=== PATIENT | male | born 1935 | race Caucasian/White ===

== ENCOUNTER → 2017-02-25 12:00 | Outpatient (CLI) | payer MEDICARE, OTHER ==
[2016-06-29 11:05] VITALS: BMI 25.1
[~2017-02-25 12:00] MED LIST: BAYER CHEWABLE81 MG PO; COREG 3.1253.125 MG PO; DILANTIN100 MG PO; FUROSEMIDE20 MG PO; ISOSORBIDE MONO60 M1 PO; LIPITOR40 MG PO; MIRALAX17 GM PO; PROTONIX40 MG PO; RANEXA1000 MG PO; SINGULAIR10 MG PO
== END | disposition home or self-care (01) ==
LOC: D.US 02-24 14:30
DX: I65.23 Occlusion and stenosis of bilateral carotid arteries (principal)

== ENCOUNTER → 2017-06-06 08:24 | Outpatient (CLI) | payer MEDICARE, OTHER ==
[2016-06-29 11:05] VITALS: BMI 25.1
== END | disposition home or self-care (01) ==
LOC: D.RT 08:24
DX: J44.9 Chronic obstructive pulmonary disease, unspecified (principal)

== ENCOUNTER 2018-02-26 19:25 | Inpatient (IN) | payer MEDICARE, OTHER ==
[~2018-02-26] VITALS: Ht 182.9 cm; Wt 81.2 kg
[2018-02-26 20:02] LABS: BASOPHILS 0.2 % (0-2); HEMATOCRIT 39.1 % (42.0-54.0); HEMOGLOBIN 13.7 g/dL (13.5-17.5); IMMATURE GRANULOCYTES 0.9 % (0-5); LYMPHOCYTES 23.1 % (15-50); MCH 34.3 pg (26.0-34.0); MCV 97.8 fL (80.0-100.0); MEAN PLATELET VOLUME 9.2 fL (7.4-10.4); NEUTROPHILS 58.8 % (40-80); RDW 13.8 % (11.5-14.5); WBC 9.2 10x3/uL (4.8-10.8)
[2018-02-26 20:12] LABS: PLATELET COUNT 248 10x3/uL (130-400)
[2018-02-26 20:22] LABS: APTT 29.6 SECONDS (22.8-39.4); INR 1.04 (0.85-1.17); PROTIME 13.2 SECONDS (11.6-15.0)
[2018-02-26 20:23] LABS: ALBUMIN 3.6 g/dL (3.4-5.0); ANION GAP 15.5 mmol/L (8-16); BILIRUBIN - TOTAL 0.28 mg/dL (0.2-1.3); CALCIUM 9.3 mg/dL (8.5-10.1); CARBON DIOXIDE 23.8 mmol/L (21.0-32.0); CREATININE - SERUM 1.8 mg/dL (0.6-1.3); POTASSIUM - SERUM 4.3 mmol/L (3.5-5.1); PROTEIN - SERUM 7.4 g/dL (6.4-8.2)
[2018-02-26 22:27] VITALS: BP 137/74; BMI 24.3
[2018-02-26 23:00] VITALS: BP 120/61
[2018-02-26] MEDS ORDERED: TOPROL XL100 MG PO (23:33)
[2018-02-27] VITALS (17 sets, daily range): BP systolic 101–164; BP diastolic 54–73; Ht 182.9 cm; Wt 81.2 kg
[2018-02-27 02:19] LABS: BASOPHILS 0.2 % (0-2); EOSINOPHILS 2.4 % (0-7); HEMATOCRIT 33.3 % (42.0-54.0); HEMOGLOBIN 11.5 g/dL (13.5-17.5); IMMATURE GRANULOCYTES 0.8 % (0-5); LYMPHOCYTES 16.8 % (15-50); MCH 31.6 pg (26.0-34.0); MCHC 34.5 g/dL (31.0-37.0); NEUTROPHILS 70.8 % (40-80); PLATELET COUNT 204 10x3/uL (130-400); RBC 3.64 10x6/uL (4.20-6.10); RDW 16.1 % (11.5-14.5); WBC 9.5 10x3/uL (4.8-10.8)
[2018-02-27 02:24] LABS: MCV 91.5 fL (80.0-100.0)
[2018-02-27 02:30] LABS: APTT 27.7 SECONDS (22.8-39.4); INR 1.04 (0.85-1.17); PROTIME 13.2 SECONDS (11.6-15.0)
[2018-02-27 02:36] LABS: ALBUMIN 3.2 g/dL (3.4-5.0); ANION GAP 14.1 mmol/L (8-16); BILIRUBIN - TOTAL 0.62 mg/dL (0.2-1.3); CALCIUM 8.7 mg/dL (8.5-10.1); CARBON DIOXIDE 23.9 mmol/L (21.0-32.0); CREATININE - SERUM 1.5 mg/dL (0.6-1.3); PROTEIN - SERUM 6.5 g/dL (6.4-8.2)
[2018-02-27 06:01] LABS: CKMB 0.8 U/L (0.0-3.6); CREATINE KINASE 79 UL (21-232); TROPONIN-I 0.019 ng/mL (0.000-0.060)
[2018-02-27 06:33] LABS: HEMATOCRIT 32.2 % (42.0-54.0); HEMOGLOBIN 11.1 g/dL (13.5-17.5)
[2018-02-27 11:28] LABS: HEMATOCRIT 33.6 % (42.0-54.0); HEMOGLOBIN 11.7 g/dL (13.5-17.5)
[2018-02-27 12:00] LABS: CKMB 0.6 U/L (0.0-3.6); CREATINE KINASE 63 UL (21-232)
[2018-02-27 12:01] LABS: TROPONIN-I 0.016 ng/mL (0.000-0.060)
[2018-02-27 14:06] LABS: HEMATOCRIT 32.7 % (42.0-54.0); HEMOGLOBIN 11.3 g/dL (13.5-17.5)
[2018-02-28 04:01] VITALS: BP 136/60
[2018-02-28 07:10] LABS: BASOPHILS 0.2 % (0-2); EOSINOPHILS 4.5 % (0-7); HEMATOCRIT 31.3 % (42.0-54.0); HEMOGLOBIN 10.8 g/dL (13.5-17.5); IMMATURE GRANULOCYTES 0.6 % (0-5); LYMPHOCYTES 15.7 % (15-50); MCH 31.6 pg (26.0-34.0); MCHC 34.5 g/dL (31.0-37.0); MCV 91.5 fL (80.0-100.0); MEAN PLATELET VOLUME 9.3 fL (7.4-10.4); MONOCYTES 12.3 % (2-11); NEUTROPHILS 66.7 % (40-80); PLATELET COUNT 188 10x3/uL (130-400); RBC 3.42 10x6/uL (4.20-6.10)
[2018-02-28 07:15] LABS: WBC 6.6 10x3/uL (4.8-10.8)
[2018-02-28 07:25] LABS: ANION GAP 15.5 mmol/L (8-16); CALCIUM 8.6 mg/dL (8.5-10.1); CARBON DIOXIDE 21.6 mmol/L (21.0-32.0); CREATININE - SERUM 1.3 mg/dL (0.6-1.3); POTASSIUM - SERUM 4.1 mmol/L (3.5-5.1)
[2018-02-28 08:31] VITALS: BP 150/71
[2018-02-28 12:32] VITALS: BP 143/74
[2018-02-28 12:49] LABS: CKMB 0.8 U/L (0.0-3.6); CREATINE KINASE 44 UL (21-232)
[2018-02-28 13:00] LABS: TROPONIN-I < 0.017 ng/mL (0.000-0.060)
[2018-02-28 16:13] VITALS: BP 130/55
[2018-02-28 17:23] LABS: CKMB 0.9 U/L (0.0-3.6); CREATINE KINASE 46 UL (21-232)
[2018-02-28 17:24] LABS: TROPONIN-I 0.084 ng/mL (0.000-0.060)
[2018-02-28 22:35] VITALS: BP 129/52
[2018-02-28 23:38] LABS: CKMB 1.5 U/L (0.0-3.6); CREATINE KINASE 55 UL (21-232)
[2018-02-28 23:41] LABS: TROPONIN-I 0.114 ng/mL (0.000-0.060)
[2018-03-01 05:28] LABS: BASOPHILS 0.3 % (0-2); EOSINOPHILS 5.2 % (0-7); HEMATOCRIT 29.5 % (42.0-54.0); IMMATURE GRANULOCYTES 0.6 % (0-5); MCH 31.6 pg (26.0-34.0); MCHC 33.9 g/dL (31.0-37.0); MCV 93.4 fL (80.0-100.0); MEAN PLATELET VOLUME 9.2 fL (7.4-10.4); MONOCYTES 10.6 % (2-11); NEUTROPHILS 66.3 % (40-80); PLATELET COUNT 206 10x3/uL (130-400); RBC 3.16 10x6/uL (4.20-6.10); RDW 16.5 % (11.5-14.5); WBC 6.4 10x3/uL (4.8-10.8)
[2018-03-01 05:58] LABS: ANION GAP 15.3 mmol/L (8-16); CALCIUM 8.6 mg/dL (8.5-10.1); CARBON DIOXIDE 21.8 mmol/L (21.0-32.0); CREATININE - SERUM 1.4 mg/dL (0.6-1.3); POTASSIUM - SERUM 4.1 mmol/L (3.5-5.1)
[2018-03-01 07:10] VITALS: BP 152/62
[2018-03-01 08:02] VITALS: BP 126/63
[2018-03-01] MEDS ORDERED: DILANTIN100 MG PO (10:10)
[2018-03-01 12:14] VITALS: BP 127/55
== END 2018-03-01 15:18 | disposition home or self-care (01) | DRG 377 ==
LOC: D.ER 19:25 → D.ICU 21:15 → D.EDHOLD 21:15 → D.MS 21:15 → D.ICU 21:51 → D.MS 02-27 18:10
PROVIDERS: Emergency Medicine; Family Medicine; Internal Medicine Gastroenterology; Internal Medicine Nephrology
DX: K92.2 Gastrointestinal hemorrhage, unspecified (principal); R57.1 Hypovolemic shock; D62 Acute posthemorrhagic anemia; K55.9 Vascular disorder of intestine, unspecified; N17.9 Acute kidney failure, unspecified; I24.8 Other forms of acute ischemic heart disease; I95.9 Hypotension, unspecified; R00.0 Tachycardia, unspecified; K52.9 Noninfective gastroenteritis and colitis, unspecified; E78.5 Hyperlipidemia, unspecified; Z95.1 Presence of aortocoronary bypass graft; Z95.5 Presence of coronary angioplasty implant and graft; G40.909 Epilepsy, unspecified, not intractable, without status epilepticus; K80.20 Calculus of gallbladder without cholecystitis without obstruction; I44.7 Left bundle-branch block, unspecified

== ENCOUNTER 2018-03-17 02:24 | Inpatient (IN) | payer MEDICARE, OTHER ==
[~2018-03-17] VITALS: Ht 182.9 cm; Wt 79.5 kg
--- NOTE | ~2018-03-17 | EC ---
PATIENT:ABHAY FRANCES DATE OF SERVICE: 03/17/18 SEX: M MEDICAL RECORD: [id number] DATE OF : 33 LOCATION:D.M2 D.211 AGE OF PATIENT: 83 ADMISSION DATE: 03/17/18 REFERRING PHYSICIAN: INTERPRETING PHYSICIAN: NICOLAS GEE MD ECHOCARDIOGRAM REPORT ECHO CHARGES 4 ECHO COMPLETE Date: 03/18 CLINICAL DIAGNOSIS: STEMI ECHOCARDIOGRAPHIC MEASUREMENTS (adult normal given) AC root (d.<3.7cm) 3.4 cm LV Septum d (<1.2 cm> 1.3 cm Valve Excursion 2.2 cm LV Septum (systole) 1.7 cm Left Atria (s.<4.0cm> 3.3 cm LVPW d(<1.2cm) 1.2 cm RV (d.<2.3cm) 2.3 cm LVPW (sytole) 1.6 cm LV diastole(<5.6CM) 4.1 cm MV E-F(>70mm/sec) cm LV systole 3.0 cm LVOT Diameter 2.0 cm MV exc.(>10mm) cm Est.ejection fraction (50-75%) % DOPPLER: LVIT cm/sec A 114 cm/sec E 31.0 cm/sec LA cm/sec RVSP mmHg LVOT 60.0 cm/sec AOP1/2T m/s Asc. Ao 100 cm/sec RVOT 92.0 cm/sec RA cm/sec PA 116 cm/sec AV Gradient Peak 4.0 mmHg AV Mean 1.8 mmHg AV Area 1.9 cm MV Gradient Peak 6.4 mmHg MV Mean 2.1 mmHg MV Area cm COMMENTS: Information Technology Teacher: 1 [facility] Three Knife Trimmer: 4 Dr. Gee TAPE# PACS Pericardial Effusion N DATE OF SERVICE: PROCEDURE: Transthoracic echocardiogram. FINDINGS: 1. Left ventricle shows left ventricular hypertrophy. There is asynchronous wall motion in the left ventricle, but overall function appears to be mild to moderately reduced at 35% to 40%. 2. The mitral valve appears to be normal. 3. The aortic valve is normal. ECHOCARDIOGRAM REPORT [id number] ABHAY FRANCES 4. Tricuspid valve is normal. RVSP is normal. 5. The right ventricle is normal. 6. The right atrium shows to be mildly dilated. 7. Pulmonic valve is normal. There is no pericardial effusion. CONCLUSIONS: The patient does have wall motion abnormalities consistent with prior infarction and qqnj-[id number]-[id number] reduction in systolic function. TRANSINT:[id number] Voice Confirmation ID: [id number] DOCUMENT ID: [id number] NICOLAS GEE MD at 1029 CC: [id number] DICTATION DATE: 03/19/18 0735 INTERNET SOURCER: 03/19/18 0856 DIS IN 03/18/18 [place] [id number] [place] [id number]
--- NOTE | ~2018-03-17 | HEMODYNAMI ---
PATIENT:ABHAY FRANCES MEDICAL RECORD: [id number] : 33 [id number] ADMISSION DATE: 03/17/18 Generatedon:03/17/201810:16 Patient name: ABHAY FRANCES Patient #: [id number] SSN: DO B: 1935 Date of study: 03/17/2018 Page: Of Hemodynamic Procedure Report Patient Data Patient Demographics Procedure consent was obtained First Name: BAHAY Gender: Male Last Name: YVROSE : 1935 Middle Initial: J Age: 83 year(s) Patient #: [id number] Race: Unknown Additional ID: [id number] Contact details Address: [address] [place] [address] State: [place] City: [facility] Zip code: [address] Past Medical History Allergies: No known allergies Admission Admission Data Admission Date: 03/17/2018 Admission Time: 4:31 Room #: D.2118 Lab Results Lab Result Date: 03/17/2018 Lab Result Time: 0:00 Biochemistry Name Units Result Min Max BUN mg/dl 21 --(----)-* 7 18 Creatinine mg/dl 1.5 --(----)-* 0.6 1.3 CBC Name Units Result Min Max Hemoglobin g/dl 13.1 -*(----)-- 13.5 17.5 Procedure Procedure Types Cath Procedure Diagnostic Procedure C [facility] w/Coronaries w/Grafts Sedation Charges Moderate Sedation up to 45 minutes Procedure Description Procedure Date Procedure Date: 03/17/2018 Procedure Start Time: 9:08 Procedure End Time: 10:08 Procedure Staff Name Function Arturo Banks MD Performing Physician Kirstie Patel RT Monitor Eduard Rojas RN Nurse Soheila Montenegro RT Scrub Abisai Smith MD Assisting physician Procedure Data Cath Procedure Fluoroscopy Diagnostic fluoroscopy Total fluoroscopy Time: time: 21.5 min 21.5 min Diagnostic fluoroscopy Total fluoroscopy dose: dose: 2206 mGy 2206 mGy Contrast Material Contrast Material Type Amount (ml) Isovue 370 131 Entry Location Entry Primary Successful Side Size Upsize Upsize Entry Closure Succes sful Closure Location (Fr) 1 (Fr) 2 (Fr) Remarks Device Remarks Femoral Left 5 Fr 6 Fr Exoseal artery Short Estimated blood loss: 10 ml Diagnostic catheters Device Type Used For End Catheter Placement MULTIPACK JL 4.0 5Fr Procedure catheter MULTIPACK 3DRC 5Fr Procedure catheter MULTIPACK Pigtail 5 Fr Procedure catheter Procedure Complications No complications Procedure Medications Medication Administration Route Dosage 0.9% NaCl I.V. 100 ml/hr Heparin Flush Bag added to field 2 bags (1000units/500ml NS) Oxygen etCO2 Nasal cannula 2 l/min Lidocaine 2% added to field 20 Versed I.V. 1 mg Fentanyl I.V. 50 mcg Heparin Bolus I.V. 6000 units Versed I.V. 1 mg Fentanyl I.V. 25 mcg Heparin Bolus I.V. 3000 units Fentanyl I.V. 25 mcg Hemodynamics Rest HGB: 13.1 (g/dl) Heart Rate: 81 (bpm) Pressure Samples Time Site Value (mmHg) Purpose Heart Use Rate(bpm) 9:24 LV 173/3,13 EDP 74 9:25 AO 144/75(107) Pullback 79 Gradients Valve Time Site Site 2 Mean SEP/DFP Peak To Heart Use 1 (mmHg) (sec/min) Peak Rate (mmHg) (bpm) Aortic 9:25 LV AO 79 144/75(107) Snapshots Pre Cath Intra NCS Post Cath Vital Signs Time Heart Resp SPO2 etCO2 NIBP (mmHg) Rhythm Pain Sedation Rate (ipm) (%) (mmHg) Status Level (bpm) 8:57:37 80 18 97 17.1 172/92(138) NSR 0 (11) 10(A) , No pain 9:02:32 79 17 95 20.1 173/89(130) NSR 0 (11) 10(A) , No pain 9:07:29 73 14 94 15.6 154/73(127) NSR 0 (11) 9(A) , No pain 9:12:28 74 12 92 15.6 157/79(125) NSR 0 (11) 9(A) , No pain 9:17:25 75 12 92 17.1 151/80(125) NSR 0 (11) 9(A) , No pain 9:22:24 73 14 92 13.4 151/70(119) NSR 0 (11) 9(A) , No pain 9:27:23 76 16 93 15.6 148/71(120) NSR 0 (11) 9(A) , No pain 9:32:20 77 16 92 15.6 154/77(127) NSR 0 (11) 9(A) , No pain 9:37:23 75 16 92 19.3 157/74(119) NSR 0 (11) 9(A) , No pain 9:42:28 77 16 92 20.8 156/82(120) NSR 0 (11) 9(A) , No pain 9:49:00 85 20 93 12.6 164/92(132) NSR 0 (11) 10(A) , No pain 9:54:23 83 24 90 11.9 162/85(126) NSR 0 (11) 9(A) , No pain 9:59:39 78 19 92 0 157/77(122) NSR 0 (11) 9(A) , No pain 10:04:48 76 17 91 17.1 150/74(120) NSR 0 (11) 9(A) , No pain Medications Time Medication Route Dose Verified Delivered Reason Notes Effectiveness by by 9:01:27 0.9% NaCl I.V. 100 Eduard Eduard Per physician ml/hr Crystal Rojas RN RN 9:01:40 Heparin Flush added 2 Eduard Eduard used for Bag to bags Crystal Rojas procedure (1000units/500ml field RN RN NS) 9:01:50 Oxygen etCO2 2 Eduard Eduard Per physician Nasal l/min Crystal Rojas cannula RN RN 9:02:01 Lidocaine 2% added 20ml Eduard Eduard for local to vial Crystal Rojas anesthetic field RN RN 9:04:27 Versed I.V. 1 mg Eduard Eduard for sedation Crystal Rojas RN RN 9:04:36 Fentanyl I.V. 50 Eduard Eduard for sedation mcg Crystal Rojas RN RN 9:30:14 Heparin Bolus I.V. 6,000 Eduard Eduard for units Crystal Rojas anticoagulation RN RN 9:51:44 Versed I.V. 1 mg Eduard Eduard for sedation Crystal Rojas RN RN 9:51:53 Fentanyl I.V. 25 Eduard Chapa for sedation francois Rojas RN RN 10:03:54 Heparin Bolus I.V. 3,000 Eduard Eduard for units Crystal Rojas anticoagulation RN RN 10:07:39 Fentanyl I.V. 25 Eduard Eduard for sedation francois Rojas RN senior marketing data analyst Log Time Note 8:30:12 Eduard Rojas RN sent for patient. Start room use. 8:30:13 Time tracking: Regular hours (M-F 7:00 - 5:00) 8:30:18 Plan of Care:Hemodynamics will remain stable., Cardiac rhythm will remain stable., Comfort level will be maintained., Respiratory function will remain adequate., Patient/ family verbilizes understanding of procedure., Procedure tolerated without complication., Recovers from procedure without complications.. 8:51:45 Patient received from PCU to CCL 1 Alert and oriented. Tansferred to table in Supine position. 8:51:45 Warm blankets applied, and gila hugger turned on for patient comfort. 8:51:46 Correct patient and procedure confirmed by team. 8:51:48 Signed procedure consent form obtained from patient. 8:51:52 ECG and BP/O2 sat monitors applied to patient. 8:51:53 Full Disclosure recording started 8:56:31 Vital chart was started 8:57:25 Baseline sample Acquired. 8:57:29 Rhythm: sinus rhythm 8:58:23 H&P Date Dictated: 02/26/2018 Within 30 days and on chart.. 8:58:24 Pre-procedure instructions explained to patient. 8:58:24 Pre-op teaching completed and patient verbalized understanding. 8:58:26 Family in patients room. 8:58:28 Patient NPO since Midnight. 8:58:33 Patient allergic to No known allergies 8:58:36 Is patient on blood thinner?Yes 8:58:38 ACC The patient was administered the following blood thiners within the last 24 hours: ACCPlavix 8:58:41 Patient diabetic? No. 8:58:44 Previous problem with sedation/anesthesia? No ? 8:58:46 Snore? Yes 8:58:47 Sleep apnea? No 8:58:48 Deviated septum? No 8:58:50 Opens mouth fully? Yes 8:58:51 Sticks out tongue? Yes 8:58:54 Airway obstruction? No ? 8:58:59 Dentures? Yes in tight 9:00:43 Pre procedure: left dorsailis pedis pulse 2+ Normal; easily identifiable; not easily obliterated 9:00:46 Patient pain scale 0/10 ?. 9:00:55 IV patent on arrival in right antecubital with 0.9% NaCl at [facility]. 9:: Lab Result : BUN 21 mg/dl 9:: Lab Result : Creatinine 1.5 mg/dl 9:: Lab Result : Hemoglobin 13.1 g/dl 9:: Lab results completed and on chart. 9:: 0.9% NaCl 100 ml/hr I.V. was administered by Eduard Rojas RN; Per physician; 9:01:28 Left groin area was prepped with chlora-prep and draped in sterile fashion 9::30 Alarms reviewed by R. N. 9::30 Sharps counted by scrub and verified by R.N. 9:01:33 Use device set Femoral Dx 9:01:34 ACIST Syringe (82146) opened to sterile field. 9:01:35 Bag Decanter (2002S) opened to sterile field. 9:01:36 ACIST Manifold (05160) opened to sterile field. 9:01:36 ACIST Hand Control (24797) opened to sterile field. 9:01:37 Tegaderm 4 x 4 (1626W) opened to sterile field. 9:01:40 Heparin Flush Bag (1000units/500ml NS) 2 bags added to field was administered by Eduard Rojas RN; used for procedure; 9:01:41 Medline Cath Pack ([id number]) opened to sterile field. 9:01:41 DIAGNOSTIC WIRE .035 260cm J wire (395294) opened to sterile field. 9:01:43 DIAGNOSTIC Multipack 5Fr catheter set (WL4909) opened to sterile field. 9:01:44 MICROPUNCTURE 4FR Cook (A98958) opened to sterile field. 9:01:45 SHEATH Prelude 5Fr 0.035 (YEZ-8O-87-035) opened to sterile field. 9:01:50 Oxygen 2 l/min etCO2 Nasal cannula was administered by Eduard Rojas RN; Per physician; 9:02:01 Lidocaine 2% 20ml vial added to field was administered by Eduard Rojas RN; for local anesthetic; 9:03:03 --------ALL STOP TIME OUT------ 9:03:04 Final Timeout: patient, procedure, and site verified with staff and physician. All members of the team are in agreement. 9:03:05 Left groin site verified by team. 9:03:08 Physical assessment completed. ASA score P 2 - A patient with mild systemic disease as per Arturo Banks MD. 9:03:10 Sedation plan: IV Moderate Sedation Medication:Versed, Fentanyl 9::27 Versed 1 mg I.V. was administered by Eduard Rojas RN; for sedation; 9::36 Fentanyl 50 mcg I.V. was administered by Eduard Rojas RN; for sedation; 9:08:32 Procedure started. 9:08:39 Local anesthetic to left femerol artery with Lidocaine 2% by Arturo Banks MD.INITIAL ACCESS ONLY 9:09:35 Zero performed for pressure channel P1 9:09:38 Zero performed for pressure channel P1 9:09:45 Zero performed for pressure channel P1 9:10:08 Zero performed for pressure channel P1 9:10:20 Zero performed for pressure channel P1 9:10:32 Zero performed for pressure channel P1 9:11:17 Access obtained with 4Fr micropunture. 9:11:34 A 5 Fr sheath was inserted into the Left Femoral artery 9:12:02 A MULTIPACK JL 4.0 5Fr catheter was advanced over the wire and used for Procedure. 9:13:11 LCA angiography performed. 9:14:48 Catheter exchanged over wire. 9:15:37 A MULTIPACK 3DRC 5Fr catheter was advanced over the wire and used for Procedure. 9:16:21 RCA angiography performed. 9:17:57 SVG to RCA occluded. 9:21:17 RAE to LAD angiography performed. 9:23:01 Catheter exchanged over wire. 9:23:53 A MULTIPACK Pigtail 5 Fr catheter was advanced over the wire and used for Procedure. 9:24:14 Injector settings: Ml/sec: 12, Volume: 8, 9:24:17 LV gram done using ARRIAGA 9:24:44 LV hemodynamics recorded. 9:25:32 EF : 40 % 9:25:37 Catheter exchanged over wire. 9:26:19 COPILOT Valve Control (6898921) opened to sterile field. 9:26:24 SHEATH 6FR [place] (YDW026) opened to sterile field. 9:26:28 INFLATOR Merit BasixCompak (VY8361) opened to sterile field. 9:28:20 GUIDE 6FR XBLAD 3.5 SH catheter (96140098) opened to sterile field. 9:28:34 Sheath upsized to a 6 Fr Short. 9:29:40 GRAPHIX 182cm guide wire ([id number]) opened to sterile field. 9:30:14 Heparin Bolus 6,000 units I.V. was administered by Eduard Rojas RN; for anticoagulation; 9:30:17 6 Fr XBLAD 3.5 guide catheter was inserted over the wire 9:32:10 UNABLE TO CROSS. WIRE REMOVED 9:32:10 PT GRAPHIX 182 wire advanced. 9:36:33 FIELDER XT 190cm guidewire ([id number]) opened to sterile field. 9:37:00 FIELDER 190 wire advanced. 9:41:57 Wire removed. 9:42:33 BMW 300cm Straight Sims 2 wire (1155277) opened to sterile field. 9:42:34 SuperCross Microcatheter 90 angle (5304) opened to sterile field. 9:43:42 BMW 300 wire advanced. 9:44:07 Supercross catheter advanced 9:49:38 SUPERCROSS REMOVED 9:49:44 WIRE REMOVED 9:50:39 WHISPER 190cm wire ([id number]) opened to sterile field. 9:50:53 WHISPER 190 wire advanced. 9:51:44 Versed 1 mg I.V. was administered by Eduard Rojas RN; for sedation; 9:51:53 Fentanyl 25 mcg I.V. was administered by Eduard Rojas RN; for sedation; 9:52:54 Wire removed. 9:52:55 Guide catheter removed. 9:54:36 DR. SMITH IN TO ASSIST PROCEDURE 9:56:59 GUIDE 6FR EBU 3.5 SH catheter ([id number]) opened to sterile field. 9:57:12 6 Fr EBU 3.5 SH guide catheter was inserted over the wire 9:58:16 GLIDE WIRE Super Stiff Angled 260cm (GW7016) opened to sterile field. 9:59:01 GLIDE WIRE USED TO ADVANCE GUIDE 10:00:37 FIELDER wire advanced. 10:03:54 Heparin Bolus 3,000 units I.V. was administered by Eduard Rojas RN; for anticoagulation; 10:05:31 Guide catheter removed. 10:05:32 Wire removed. 10:05:48 EXOSEAL 6Fr (EX600) opened to sterile field. 10:06:07 Sheath removed intact; hemostasis achieved with Exoseal to the Left Femoral artery. 10:06:09 Procedure ended.(Physican Out) 10:06:16 Fluoroscopy time 21.50 minutes. 10:06:21 Flurop Dose total: 2206 10:06:21 Fluoroscopy dose: 2206 mGy 10:06:42 Contrast amount:Isovue 370 131ml. 10:06:43 Sharps counted by scrub and verified by R.N. 10:06:46 Insertion/operative site no bleeding no hematoma. 10:06:48 Post-op/insertion site Left Femoral artery dressed using a 4 x 4 and Tegaderm. 10:06:55 Post left femerol artery:stable, soft, clean and dry 10:07:00 Post procedure: left dorsailis pedis pulse 2+ Normal; easily identifiable; not easily obliterated. 10:07:03 Post-procedure physical assessment completed. ASA score P 2 - A patient with mild systemic disease as per Arturo Banks MD. 10:07:05 Post procedure rhythm: unchanged. 10:07:08 Estimated blood loss: 10 ml 10:07:10 Post procedure instruction explained to patient.Patient verbalizes understanding. 10:07:11 Patient needs reinforcement of post procedure teaching. 10:07:39 Fentanyl 25 mcg I.V. was administered by Eduard Rojas RN; for sedation; 10:07:50 Procedure type changed to Cath procedure, Diagnostic procedure, LHC, LHC w/Coronaries w/Grafts, Sedation Charges, Moderate Sedation up to 45 minutes 10:07:52 Procedure and supply charges have been captured, reviewed, submitted and are correct. 10:08:03 Procedure Complication : No complications 10:08:05 Vital chart was stopped 10:08:07 See physician's report for complete and final results. 10:08:08 Report given to PCU. 10:08:11 Patient transfered to PCU with Bed. 10:08:13 Procedure ended. 10:08:13 Full Disclosure recording stopped 10:08:17 End room use (Document Last) Device Usage Item Name Manufacture Quantity Catalog Number Hospital Part Current M inimal Lot# / Charge Number Stock Stock Serial# Code ACIST Syringe Acist 1 15207 000478 999078 701684 2 0 (10321) Medical Systems [employer]ARE [employer] Bag Decanter Microtek 1 2001S 941052 00080 197824 5 (2001S) Medical Inc. ACIST Manifold Acist 1 35821 131829 186587 806756 5 (78251) Medical Systems [employer]ARE [employer] ACIST Hand Acist 1 83095 652352 361946 040200 5 Control (38558) Open Mile Systems [employer]ARE Biotechnology Tegaderm 4 x 4 3M 1 1626W 978822 652792 610832 5 (1626W) Medline Cath Cardinal 1 [id number] 629114 45763 254618 5 [facility] ViClone ([id number]) DIAGNOSTIC WIRE [facility] Raul 1 262892 466960 963290 351814 3 0 .035 260cm J wire (630980) DIAGNOSTIC Cardinal 1 QX2059 931352 38310 495937 3 0 Multipack 5Fr Health catheter set (NF7835) MICROPUNCTURE Cook Medical 1 M22372 225255 139947 946188 5 4FR Cook (U39044) SHEATH Prelude Merit 1 STK-5N-33-035 995873 069028 736475 5 5Fr 0.035 Medical (AVF-3M-41-035) MULTIPACK JL Cardinal 1 650611 5 4.0 5Fr Health catheter MULTIPACK 3DRC Cardinal 1 029204 5 5Fr catheter Health MULTIPACK Cardinal 1 094358 5 Pigtail 5 Fr Health catheter COPILOT Valve Lakhani 1 4979852 806776 254523 488157 5 Control Vascular (0367256) SHEATH 6FR Terumo 1 PWF945 095406 215388 443700 4 0 [place] (ZXC412) INFLATOR Merit Merit 1 WT3021 420919 612981 508985 1 5 Otologic Pharmaceutics (KJ9468) GUIDE 6FR XBLAD Cardinal 1 59793787 082693 727174 870910 3 3.5 catheter Health (78543598) GRAPHIX 182cm Mora 1 [id number] 528443 667247 416681 5 guide wire Scientific (8358889W2) FIELDER XT Lakhani 1 [id number] 158058 33828 385052 5 190cm guidewire Vascular ([id number]) BMW 300cm Lakhani 1 5177487 537738 813527 493230 5 Straight Vascular Sims 2 wire (5082146) SuperCross Vascular 1 5304 944593 844078 892267 5 Microcatheter Solutions 90 angle (5304) WHISPER 190cm Lakhani 1 [id number] 647487 275891 578249 5 wire Vascular ([id number]) GUIDE 6FR EBU Medtronic 1 [id number] 636140 93214 102187 1 3.5 SH catheter ([id number]) GLIDE WIRE Terumo 1 ZP8056 986667 092868 759794 5 Super Stiff Angled 260cm (DV4786) EXOSEAL 6Fr Cardinal 1 EX600 367388 226548 123943 1 0 (EX600) Health Signature Audit [place] Stage Time Signature Unsigned Intra-Procedure 03/17/2018 Kirstie Patel 10:16:28 AM RT(R) Signatures Monitor : Kirstie Patel Signature : RT Date : Time : [place] [id number] [place] [address]
[~2018-03-17 02:24] MED LIST changes: +TOPROL XL100 MG PO
[2018-03-17 02:59] LABS: BASOPHILS 0.3 % (0-2); EOSINOPHILS 4.8 % (0-7); HEMATOCRIT 37.4 % (42.0-54.0); HEMOGLOBIN 13.1 g/dL (13.5-17.5); IMMATURE GRANULOCYTES 0.1 % (0-5); LYMPHOCYTES 24.3 % (15-50); MCH 33.5 pg (26.0-34.0); MCV 95.7 fL (80.0-100.0); MEAN PLATELET VOLUME 9.5 fL (7.4-10.4); MONOCYTES 13.7 % (2-11); NEUTROPHILS 56.8 % (40-80); PLATELET COUNT 197 10x3/uL (130-400); RBC 3.91 10x6/uL (4.20-6.10); RDW 17.1 % (11.5-14.5); WBC 7.5 10x3/uL (4.8-10.8)
[2018-03-17 03:07] LABS: ALBUMIN 4.1 g/dL (3.4-5.0); ALKALINE PHOSPHATASE 105 U/L (46-116); ALT (SGPT) 20 U/L (10-68); BILIRUBIN - TOTAL 0.36 mg/dL (0.2-1.3); CALC OSMOLALITY 277 mosm/kg (275-300); CALCIUM 9.1 mg/dL (8.5-10.1); CARBON DIOXIDE 23.1 mmol/L (21.0-32.0); CHLORIDE - SERUM 99 mmol/L (98-107); CREATININE - SERUM 1.5 mg/dL (0.6-1.3); GLUCOSE 146 mg/dL (74-106); POTASSIUM - SERUM 4.3 mmol/L (3.5-5.1); PROTEIN - SERUM 7.6 g/dL (6.4-8.2); SODIUM 136 mmol/L (136-145); UREA NITROGEN 21 mg/dL (7-18); eGFR NON AFRICAN AMERICAN 47 mL/min (90-120)
[2018-03-17 03:23] LABS: CHOL - HDL RATIO 3.1 ratio (2.3-4.9); CHOLESTEROL, TOTAL 160 mg/dL (0-200); CKMB 4.1 U/L (0.0-3.6); CREATINE KINASE 85 UL (21-232); HDL CHOLESTEROL 51 mg/dL (32-96); LDL CHOLESTEROL 67 mg/dL (0-100); LDL-HDL RATIO 1.3 ratio (1.5-3.5); MAGNESIUM - SERUM 2.2 mg/dL (1.8-2.4); TRIGLYCERIDE 213 mg/dL (30-200)
[2018-03-17 03:24] LABS: TROPONIN-I 0.709 ng/mL (0.000-0.060)
[2018-03-17 06:05] VITALS: BP 151/75; BMI 25.8
[2018-03-17 06:14] VITALS: BP 171/78
[2018-03-17] MEDS ORDERED: MAGNESIUM OXID250 MG PO (07:08)
[2018-03-17] MEDS ORDERED: ASCORBIC ACID500 MG PO (07:10)
[2018-03-17] MEDS ORDERED: CALCIUM 500 + D1 TAB PO (07:12)
[2018-03-17 07:19] LABS: BASOPHILS 0.3 % (0-2); EOSINOPHILS 5.4 % (0-7); HEMOGLOBIN 12.6 g/dL (13.5-17.5); IMMATURE GRANULOCYTES 0.3 % (0-5); LYMPHOCYTES 21.9 % (15-50); MCH 32.9 pg (26.0-34.0); MCHC 34.1 g/dL (31.0-37.0); MCV 96.6 fL (80.0-100.0); MEAN PLATELET VOLUME 10.8 fL (7.4-10.4); MONOCYTES 12.9 % (2-11); NEUTROPHILS 59.2 % (40-80); PLATELET COUNT 199 10x3/uL (130-400); RBC 3.83 10x6/uL (4.20-6.10); RDW 17.3 % (11.5-14.5); WBC 6.3 10x3/uL (4.8-10.8)
[2018-03-17 07:22] LABS: ANION GAP 19.3 mmol/L (8-16); CALCIUM 9.3 mg/dL (8.5-10.1); CARBON DIOXIDE 22.2 mmol/L (21.0-32.0); CREATININE - SERUM 1.5 mg/dL (0.6-1.3); POTASSIUM - SERUM 4.5 mmol/L (3.5-5.1)
[2018-03-17] MEDS ORDERED: MULTIPLE VITAMI1 TA1 PO (07:27)
[2018-03-17] MEDS ORDERED: STOOL SOFTENER100 M1 PO (07:28)
[2018-03-17 07:51] VITALS: BP 156/73
[2018-03-17 12:41] VITALS: Ht 182.9 cm; Wt 79.5 kg
[2018-03-17 15:31] VITALS: BP 143/71
[2018-03-17 20:31] VITALS: BP 123/75
[2018-03-18 04:00] VITALS: BP 134/51
[2018-03-18 05:43] VITALS: BP 114/54
[2018-03-18 06:23] LABS: BASOPHILS 0.2 % (0-2); EOSINOPHILS 5.7 % (0-7); HEMATOCRIT 37.3 % (42.0-54.0); HEMOGLOBIN 12.6 g/dL (13.5-17.5); LYMPHOCYTES 18.2 % (15-50); MCH 33.1 pg (26.0-34.0); MCHC 33.8 g/dL (31.0-37.0); MCV 97.9 fL (80.0-100.0); MEAN PLATELET VOLUME 10.3 fL (7.4-10.4); MONOCYTES 17.1 % (2-11); NEUTROPHILS 58.8 % (40-80); PLATELET COUNT 175 10x3/uL (130-400); RBC 3.81 10x6/uL (4.20-6.10); RDW 17.9 % (11.5-14.5); WBC 5.9 10x3/uL (4.8-10.8)
[2018-03-18 07:02] LABS: ANION GAP 17.5 mmol/L (8-16); CALCIUM 8.8 mg/dL (8.5-10.1); CARBON DIOXIDE 21.9 mmol/L (21.0-32.0); CREATININE - SERUM 1.4 mg/dL (0.6-1.3); POTASSIUM - SERUM 4.4 mmol/L (3.5-5.1)
[2018-03-18 07:44] VITALS: BP 125/60
[2018-03-18 11:23] VITALS: BP 131/66
== END 2018-03-18 13:48 | disposition home or self-care (01) | DRG 282 ==
LOC: D.ER 02:24 → D.M2 04:31 → D.EDHOLD 04:31 → D.M2 04:40
PROVIDERS: Family Medicine; Internal Medicine Cardiovascular Disease
PROC: 4A023N7 Measurement of Cardiac Sampling and Pressure, Left Heart, Percutaneous Approach (ICD-10-PCS; 2018-03-17)
PROC: B2111ZZ Fluoroscopy of Multiple Coronary Arteries using Low Osmolar Contrast (ICD-10-PCS; principal; 2018-03-17 11:00)
PROC: B2151ZZ Fluoroscopy of Left Heart using Low Osmolar Contrast (ICD-10-PCS; 2018-03-17 11:00)
DX: I21.4 Non-ST elevation (NSTEMI) myocardial infarction (principal); I25.10 Atherosclerotic heart disease of native coronary artery without angina pectoris; Z95.1 Presence of aortocoronary bypass graft; I25.5 Ischemic cardiomyopathy; I10 Essential (primary) hypertension; Z87.891 Personal history of nicotine dependence

== ENCOUNTER 2018-04-17 21:27 | Emergency (ER) | payer MEDICARE, OTHER ==
[~2018-04-17] VITALS: Ht 182.9 cm; Wt 100.0 kg
[~2018-04-17 21:27] MED LIST changes: +ASCORBIC ACID500 MG PO; +CALCIUM 500 + D1 TAB PO; +MAGNESIUM OXID250 MG PO; +MULTIPLE VITAMI1 TA1 PO; +STOOL SOFTENER100 M1 PO
[2018-04-17 21:45] VITALS: Ht 182.9 cm; Wt 100.0 kg
[2018-04-18 00:09] LABS: APPEARANCE HAZY (CLEAR); BACTERIA NONE SEEN /hpf (NONE SEEN); BILIRUBIN NEGATIVE (NEGATIVE); COLOR PINK (YELLOW); EPITHELIAL CELLS NSEEN /hpf (0-5); GLUCOSE NEGATIVE (NEGATIVE); KETONE NEGATIVE (NEGATIVE); NITRITE NEGATIVE (NEGATIVE); PROTEIN 1+ mg/dL (NEGATIVE); RED CELLS - URINE >50 /hpf (0-5); URIC ACID CRYSTALS RARE /hpf (NONE SEEN); UROBILINOGEN NORMAL (NORMAL); WHITE CELLS - URINE 0-5 /hpf (0-5)
[2018-04-18 01:45] VITALS: BP 135/75
== END 2018-04-18 01:45 | disposition home or self-care (01) ==
LOC: D.ER 21:27
PROVIDERS: Family Medicine
DX: T83.038A Leakage of other urinary catheter, initial encounter (principal)

== ENCOUNTER → 2018-11-24 08:19 | Outpatient (CLI) | payer MEDICARE, OTHER ==
[2018-04-17 21:45] VITALS: BMI 29.9
== END | disposition home or self-care (01) ==
LOC: D.RT 08:19
DX: J44.9 Chronic obstructive pulmonary disease, unspecified (principal); E88.01 Alpha-1-antitrypsin deficiency

== ENCOUNTER 2020-04-12 14:46 | Inpatient (IN) | payer MEDICARE, OTHER ==
[~2020-04-12] VITALS: Ht 180.3 cm; Wt 79.4 kg
[2020-04-12] MEDS ORDERED: HYDROCODON-ACE1 EAC7 PO (16:45)
[2020-04-12 18:12] LABS: BASOPHILS 0.1 % (0-2); EOSINOPHILS 1.7 % (0-7); IMMATURE GRANULOCYTES 0.2 % (0-5); LYMPHOCYTES 12.9 % (15-50); MCH 33.4 pg (26.0-34.0); MCHC 34.1 g/dL (31.0-37.0); MCV 97.9 fL (80.0-100.0); MEAN PLATELET VOLUME 9.8 fL (7.4-10.4); MONOCYTES 8.4 % (2-11); NEUTROPHILS 76.7 % (40-80); PLATELET COUNT 146 10x3/uL (130-400); RBC 4.19 10x6/uL (4.20-6.10); RDW 13.8 % (11.5-14.5)
[2020-04-12 18:17] VITALS: BP 160/58
[2020-04-12 18:26] LABS: ANION GAP 14.5 mmol/L (8-16); CALCIUM 8.7 mg/dL (8.5-10.1); CREATININE - SERUM 1.5 mg/dL (0.6-1.3); POTASSIUM - SERUM 4.5 mmol/L (3.5-5.1)
[2020-04-12 18:29] LABS: INR 1.07 (0.85-1.17); PROTIME 13.9 SECONDS (11.6-15.0)
[2020-04-12 18:32] LABS: ALBUMIN 4.4 g/dL (3.4-5.0); BILIRUBIN - TOTAL 0.38 mg/dL (0.2-1.3); PROTEIN - SERUM 7.2 g/dL (6.4-8.2)
[2020-04-12 20:00] VITALS: BP 160/55
--- NOTE | 2020-04-12 20:40 | NUR ---
PT ARRIVED TO THE FLOOR. ALERT AND ORIENTED. NO SIGNS OF DISTRESS. PT IS COMPLAINNING OF RT SHOULDER PAIN. SLING PRESENT. RT SHOULDER SWELLING PRESENT. IV SITE LT AC DRESSING CLEAN DRY AND ITNACT. NO SIGNS OF INFECTION OR IFULTRATION. LUNG SOUNDS CLEAR. BOWEL SOUNDS ACTIVE. SKIN CLEAN DRY AND INTACT. AT BEDSIDE. WILL CONTINUE PLAN OF CARE. CALL LIGHT IN REACH. BED LOWERED AND LOCKED. BED RAILS UPX3.
[2020-04-12 22:26] VITALS: BMI 24.4
[2020-04-12] MEDS ORDERED: SINGULAIR10 MG PO (23:25)
[2020-04-12] MEDS ORDERED: PLAVIX75 MG PO (23:26)
[2020-04-12] MEDS ORDERED: NITROQUICK0.4 MG SL (23:27)
[2020-04-12] MEDS ORDERED: ISOSORBIDE MONO60 M1 PO (23:29)
[2020-04-12] MEDS ORDERED: COREG6.25 MG PO (23:30)
[2020-04-12] MEDS ORDERED: DILANTIN100 MG PO (23:34)
[2020-04-13] VITALS (10 sets, daily range): BP systolic 100–164; BP diastolic 37–84; Ht 180.3 cm; Wt 79.4 kg
--- NOTE | 2020-04-13 03:43 | NUR ---
I have reviewed this patient and I concur with the Shift Assessment completed by the Licensed Practical Nurse today this shift.
[2020-04-13 05:36] LABS: BASOPHILS 0.1 % (0-2); EOSINOPHILS 0.7 % (0-7); HEMATOCRIT 35.6 % (42.0-54.0); HEMOGLOBIN 11.8 g/dL (13.5-17.5); IMMATURE GRANULOCYTES 0.1 % (0-5); LYMPHOCYTES 9.3 % (15-50); MCH 32.7 pg (26.0-34.0); MCHC 33.1 g/dL (31.0-37.0); MCV 98.6 fL (80.0-100.0); MEAN PLATELET VOLUME 9.5 fL (7.4-10.4); MONOCYTES 11.6 % (2-11); NEUTROPHILS 78.2 % (40-80); PLATELET COUNT 143 10x3/uL (130-400); RBC 3.61 10x6/uL (4.20-6.10); RDW 13.9 % (11.5-14.5); WBC 10.4 10x3/uL (4.8-10.8)
[2020-04-13 05:58] LABS: ANION GAP 11.7 mmol/L (8-16); CALCIUM 8.3 mg/dL (8.5-10.1); CARBON DIOXIDE 24.7 mmol/L (21.0-32.0); CREATININE - SERUM 1.4 mg/dL (0.6-1.3); MAGNESIUM - SERUM 2.2 mg/dL (1.8-2.4); POTASSIUM - SERUM 4.4 mmol/L (3.5-5.1)
--- NOTE | 2020-04-13 07:57 | NUR ---
HE HAS HAS HIS BP MEDS, HIS HCG BATH AND LINEN CHANGE. STILL WAITING FOR A URINE SPECIMEN. HE HAS A LABORER WHARF HE IS USING, HIS IS AT THE BEDSIDE. DR. RAM ROUNDING AND SPOKE WITH THE PATIENT AND HIS . THE CALL LIGHT IS WITHIN REACH.
--- NOTE | 2020-04-13 08:49 | MORECARE ---
CASE MANAGEMENT DISCHARGE SUMMARY PATIENT: ABHAY FRANCES UNIT: [id number] ADM DATE: 04/12/20 AGE: 85 : 34 SEX: M ROOM/BED: D.2223 AUTHOR: PAULY CLINTON PHYSICIAN: REFERRING PHYSICIAN: SAMM YANG DO DATE OF SERVICE: 04/13/20 Discharge Plan Patient Name: ABHAY FRANCES Facility: [facility]:[place] : 1935 Planned Disposition: Home with Home Health Anticipated Discharge Date: Discharge Date: Expected LOS: Initial Reviewer: [email or web address] Initial Review Date: 04/13/2020 Generated: 04/13/20 9:49 am DCP- Discharge Planning Updated by [email or web address]: Tiffani Cardenas on 04/13/20 7:[address] Patient Name: ABHAY FRANCES Admission Status: ER Accout number: [id number] Admission Date: 04-12-2020 : 1935 Admission Diagnosis: Attending: SAMM YANG Current LOS: 1 Anticipated DC Date: Planned Disposition: Home with Home Health Primary Insurance: MEDICARE A & B Discharge Planning Comments: CM met with patient at bedside after explaining CM role and obtaining verbal consent. CM discussed availability / needs of home health, REHAB and medical equipment. GUERITA HAWK SIGNED FOR [facility] . I WILL FAX REFERRAL NOW. Rivet Hole Puncher: Tiffani CardenasPatient Name: ABHAY FRANCES Admission Status: ER Accout number: [id number] Admission Date: 04-12-2020 : 1935 Admission Diagnosis: Attending: SAMM YANG Current LOS: 1 Anticipated DC Date: Planned Disposition: Home with Home Health Primary Insurance: MEDICARE A & B Discharge Planning Comments: Rivet Hole Puncher: Tiffani Cardenas DCPIA - Discharge Planning Initial Assessment Updated by [email or web address]: Tiffani Cardenas on 04/13/20 8:46 am * Is the patient Alert and Oriented? Yes * PCP DOLORES * Pharmacy [facility] [place] * Preadmission Environment Home Alone * Other Equipment CANE, WALKER, O2, NEBS, BSC * Community resources currently utilized None * Additional services required to return to the preadmission environment? No * Can the patient safely return to the preadmission environment? Yes * Has this patient been hospitalized within the prior 30 days at any hospital? Yes Patient Name: ABHAY FRANCES Page [phone] at 0849 All edits/amendments must be made on the electronic document DICTATION DATE: 04/13/20848 RESTAURANT GREETER: RAHEL 04/13/20848 RPT#: [id number] DC DATE: STATUS: ADM IN [facility] [address] [place] [address] END OF REPORT
--- NOTE | 2020-04-13 08:56 | MORECARE ---
CASE MANAGEMENT DISCHARGE SUMMARY PATIENT: ABHAY FRANCES UNIT: [id number] ADM DATE: 04/12/20 AGE: 85 : 34 SEX: M ROOM/BED: D.2223 AUTHOR: PAULY CLINTON PHYSICIAN: REFERRING PHYSICIAN: SAMM YANG DO DATE OF SERVICE: 04/13/20 Discharge Plan Patient Name: ABHAY FRANCES Facility: [facility]:[place] : 1935 Planned Disposition: Home with Home Health Anticipated Discharge Date: Discharge Date: Expected LOS: Initial Reviewer: [email or web address] Initial Review Date: 04/13/2020 Generated: 04/13/20 9:56 am DCP- Discharge Planning Updated by [email or web address]: Tiffani Cardenas on 04/13/20 7:[address] Patient Name: ABHAY FRANCES Admission Status: ER Accout number: [id number] Admission Date: 04-12-2020 : 1935 Admission Diagnosis: Attending: SAMM YANG Current LOS: 1 Anticipated DC Date: Planned Disposition: Home with Home Health Primary Insurance: MEDICARE A & B Discharge Planning Comments: CM met with patient at bedside after explaining CM role and obtaining verbal consent. CM discussed availability / needs of home health, REHAB and medical equipment. GUERITA HAWK SIGNED FOR [facility] . I WILL FAX REFERRAL NOW. Chassis Mechanic: Tiffani CardenasPatient Name: ABHAY FRANCES Admission Status: ER Accout number: [id number] Admission Date: 04-12-2020 : 1935 Admission Diagnosis: Attending: SAMM YANG Current LOS: 1 Anticipated DC Date: Planned Disposition: Home with Home Health Primary Insurance: MEDICARE A & B Discharge Planning Comments: Chassis Mechanic: Tiffani Cardenas DCPIA - Discharge Planning Initial Assessment Updated by [email or web address]: Tiffani Cardenas on 04/13/20 8:46 am * Is the patient Alert and Oriented? Yes * PCP DOLORES * [facility]acy [facility] [place] * Preadmission Environment Home Alone * Other Equipment CANE, WALKER, O2, NEBS, BSC * Community resources currently utilized None * Additional services required to return to the preadmission environment? No * Can the patient safely return to the preadmission environment? Yes * Has this patient been hospitalized within the prior 30 days at any hospital? Yes External Providers External Provider[facility] Next Contact Date: Service Request Date: Service Type: Resolution: Reviewer: Comments: Last DP export: 04/13/20 7:49 a Patient Name: ABHAY FRANCES Page [phone] at 0856 All edits/amendments must be made on the electronic document DICTATION DATE: 04/13/20855 PRICE CHANGER: RAHEL 04/13/2056 RPT#: [id number] DC DATE: STATUS: ADM IN [facility] [address] [place] [address] END OF REPORT
--- NOTE | 2020-04-13 10:32 | NUR ---
GONE TO OR, WT 4 LITERS OXYGEN. HIS IS IN THE ROOM.
[2020-04-13 15:58] LABS: BILIRUBIN NEGATIVE (NEGATIVE); GLUCOSE NEGATIVE (NEGATIVE); KETONE NEGATIVE (NEGATIVE); NITRITE NEGATIVE (NEGATIVE); SPECIFIC GRAVITY 1.015 (1.005-1.020); UROBILINOGEN NORMAL (NORMAL)
[2020-04-13 16:05] LABS: WHITE CELLS - URINE 0-5 /hpf (NEGATIVE)
[2020-04-13 16:06] LABS: AMORPHOUS SEDIMENT >1+ /lpf (NONE SEEN); BACTERIA FEW /hpf (NEGATIVE); EPITHELIAL CELLS NSEEN /hpf (0-5)
[2020-04-14] VITALS: BP 116/44
--- NOTE | 2020-04-14 03:44 | NUR ---
I have reviewed this patient and I concur with the Shift Assessment completed by the Licensed Practical Nurse today this shift.
[2020-04-14 04:00] VITALS: BP 128/56
[2020-04-14 05:05] LABS: BASOPHILS 0.1 % (0-2); EOSINOPHILS 0.1 % (0-7); HEMATOCRIT 30.1 % (42.0-54.0); HEMOGLOBIN 9.8 g/dL (13.5-17.5); IMMATURE GRANULOCYTES 0.2 % (0-5); LYMPHOCYTES 6.3 % (15-50); MCH 32.9 pg (26.0-34.0); MCHC 32.6 g/dL (31.0-37.0); MONOCYTES 14.1 % (2-11); NEUTROPHILS 79.2 % (40-80); PLATELET COUNT 128 10x3/uL (130-400); RBC 2.98 10x6/uL (4.20-6.10); RDW 14.3 % (11.5-14.5); WBC 12.5 10x3/uL (4.8-10.8)
[2020-04-14 05:25] LABS: ANION GAP 11.9 mmol/L (8-16); CALCIUM 7.7 mg/dL (8.5-10.1); CARBON DIOXIDE 22.2 mmol/L (21.0-32.0); CREATININE - SERUM 1.4 mg/dL (0.6-1.3); POTASSIUM - SERUM 4.1 mmol/L (3.5-5.1)
--- NOTE | 2020-04-14 06:27 | OP ---
PATIENT NAME: ABHAY FRANCES MEDICAL RECORD: [id number] :33 LOCATION:[facility] [id number] ADMISSION DATE:04/12/20 SURGEON: KATHERYN RAM MD DATE OF OPERATION: 04/12/2020 PREOPERATIVE DIAGNOSIS: Displaced proximal humerus fracture, four-part with severe osteoarthritis. POSTOPERATIVE DIAGNOSIS: Displaced proximal humerus fracture, four-part with severe osteoarthritis. PROCEDURE: Right total shoulder arthroplasty. SURGEON: Katheryn Ram MD ANESTHESIA: General. INTRAOPERATIVE COMPLICATIONS: None. HAND CANDY DIPPER: SORAIDA London SUMMARY OF PATHOLOGIC FINDINGS: Consistent with the patient's preoperative CT scan, the humeral head had completely sheared off at the neck, greater and lesser tuberosities were split and the patient had severe arthritis as predicted by the CT scan. IMPLANTS USED: The Aequalis Perform glenoid Aequalis fracture stem size 12 humeral head, size 52 x 19. ESTIMATED BLOOD LOSS: 200 cc. OPERATIVE SUMMARY IN DETAIL: After obtaining the appropriate preoperative orthopedic surgery consents as well as anesthetic consultation, evaluation and clearance, the patient was brought to the operating room and placed on the operating table in supine position. After general laryngeal mask airway was administered, the patient was placed in the beach chair position. All pressure points were well padded to include down leg peroneal pad as well as axillary roll. The patient was held firmly to the operating table using a natarajan bag pack suction system. Heel padding were noted. He was secured firmly. Right upper extremity and shoulder were then prepped and draped in routine sterile fashion. The arm was held in Trimano arm holding device. Deltopectoral incision was taken down. The cephalic vein was identified and protected throughout the case. The interval between the deltoid and the fractured humeral head was developed and held with a brown retractor. Conjoined tendon was gently retracted medially. At this point, the biceps tendon was found and it was then tenotomized for later tenodesis. The fracture lines were then identified. The greater and lesser tuberosity were controlled with #2 Ethibond and the humeral head was removed. Having completed this and the glenoid was approached, circumferential labrectomy was then followed by serial and sequential reaming for a size medium glenoid. Size medium glenoid was cemented into place. All excess cement was removed. Excellent fixation was achieved. Having completed this, attention was re-turned to the proximal humerus. Several sequential reaming and broaching were done. A size 12 Aequalis fracture stem was placed. The trial was, at any rate along with trial head, is corresponding to the above-mentioned implant. This was thought to be most appropriate. The final OPERATIVE REPORT [id number] ABHAY FRANCES components were cemented into place after the cement restrictor was put into the distal femoral canal. After the humeral stem was allowed to harden completely, trials were undertaken again. The final head was then tamped into place on the Javier taper, reduced and found to be excellent in continuity with the glenoid head. Greater and lesser tuberosity were then brought around behind the humeral head and tied with multiple #2 Ethibonds transosseously. The greater and lesser tuberosity were attached to the humeral shaft through drill holes in to the humeral shaft itself and the rotator cuff was also reapproximated with #2 Ethibond. Having completed this, the remainder of the closure was achieved by SORAIDA London. A gram vancomycin and a gram of tobramycin were placed in the incision itself. The final closure achieved with #1 Vicryl, 2-0 Vicryl and skin lala. Sterile dressings were applied. The patient was awakened and taken to the recovery room in stable condition. All final needle and sponge counts were correct. TRANSINT:[id number] Voice Confirmation ID: [id number] DOCUMENT ID: [id number] LEANNA CARDOSO, KATHERYN AREVALO at 0627 CC: [id number] DICTATION DATE: 04/13/20 1426 ROUGE MIXER: 04/13/20 2251 ADM IN [place] [id number] [place] [address]
[2020-04-14 09:07] VITALS: BP 154/58
--- NOTE | 2020-04-14 09:52 | NUR ---
HE IS AWAKE, ALERT, USING THE BANKRUPTCY ASSISTANT, ON 4 LITER OF OXYGEN. HIS SON AND ARE IN THE ROOM. THE CALL LIGHT IS WITHIN REACH.
--- NOTE | 2020-04-14 12:38 | NUR ---
DECREASED HIS OXYGEN TO 3 LITERS SAT IS 94%.
[2020-04-14 14:19] VITALS: BP 149/53
[2020-04-14 17:00] VITALS: BP 133/44
--- NOTE | 2020-04-14 18:00 | NUR ---
KEVIN REMOVED POST BLADDER TRAINING THIS SHIFT. OXYGEN STILL AT 3LNC, TRYING TO WEAN.
[2020-04-14 20:00] VITALS: BP 128/43
--- NOTE | 2020-04-14 21:00 | NUR ---
ASSSISTED UP TO BATHROOM. HAD SMALL BM AND VOIDED WITHOUT DIFFCULTY. SLING ITNACT OT RIGHT ARM. DRESSING INTACT TO RIGHT SHOULDER WITOUT DRAINAGE NOTED. CL IN REACH. AT BEDSIDE.
--- NOTE | 2020-04-15 03:00 | NUR ---
I have reviewed this patient and I concur with the Shift Assessment completed by the Licensed Practical Nurse today this shift.
[2020-04-15 04:00] VITALS: BP 92/96
[2020-04-15 07:42] LABS: BASOPHILS 0 % (0-2); EOSINOPHILS 0.9 % (0-7); HEMATOCRIT 28.3 % (42.0-54.0); HEMOGLOBIN 9.5 g/dL (13.5-17.5); IMMATURE GRANULOCYTES 0.1 % (0-5); LYMPHOCYTES 10.7 % (15-50); MCHC 33.6 g/dL (31.0-37.0); MEAN PLATELET VOLUME 10.5 fL (7.4-10.4); MONOCYTES 16.4 % (2-11); NEUTROPHILS 71.9 % (40-80); PLATELET COUNT 117 10x3/uL (130-400); RBC 2.88 10x6/uL (4.20-6.10)
[2020-04-15 07:48] LABS: MCV 98.3 fL (80.0-100.0); WBC 8.2 10x3/uL (4.8-10.8)
[2020-04-15 08:05] LABS: ANION GAP 15.5 mmol/L (8-16); CALCIUM 8.3 mg/dL (8.5-10.1); CARBON DIOXIDE 18.4 mmol/L (21.0-32.0); CREATININE - SERUM 1.3 mg/dL (0.6-1.3); POTASSIUM - SERUM 3.9 mmol/L (3.5-5.1)
--- NOTE | 2020-04-15 08:06 | NUR ---
UP IN CHAIR, IN ROOM, NO DISRESS NOTED, SLING AND DRESSING TO RIGHT ARM, TELE IN PLACE, CONT TO MONITOR PAIN AND SAFETY TODAY
[2020-04-15 08:27] VITALS: BP 131/52
--- NOTE | 2020-04-15 12:34 | MORECARE ---
CASE MANAGEMENT DISCHARGE SUMMARY PATIENT: ABHAY FRANCES UNIT: [id number] ADM DATE: 04/12/20 AGE: 85 : 34 SEX: M ROOM/BED: D.2223 AUTHOR: PAULY CLINTON PHYSICIAN: REFERRING PHYSICIAN: SAMM YANG DO DATE OF SERVICE: 04/15/20 Discharge Plan Patient Name: ABHAY FRANCES Facility: [facility]:[place] : 1935 Planned Disposition: Home with Home Health Anticipated Discharge Date: Discharge Date: Expected LOS: Initial Reviewer: [email or web address] Initial Review Date: 04/13/2020 Generated: 04/15/20 1:33 pm Comments DCP- Discharge Planning Updated by [id number]: Kasandra Eugene on 04/15/20 11:[address] CM spoke with patient upon discharge d/c IMM signed 04/15/20 @ 1131. Patient states that he doesn't have home 02 and doesn't need it. Patient also stated that he doesn't need Home Health Services. CM will call and cancel [facility]. CM will continue to follow and assist as needed with discharge planning / needs. DCP- Discharge Planning Updated by [id number]: Tiffani Cardenas on 04/13/20 7:[address] Patient Name: ABHAY FRANCES Admission Status: ER Accout number: [id number] Admission Date: 04-12-2020 : 1935 Admission Diagnosis: Attending: SAMM YANG Current LOS: 1 Anticipated DC Date: Planned Disposition: Home with Home Health Primary Insurance: MEDICARE A & B Discharge Planning Comments: CM met with patient at bedside after explaining CM role and obtaining verbal consent. CM discussed availability / needs of home health, REHAB and medical equipment. GUERITA HAWK SIGNED FOR [facility]. I WILL FAX REFERRAL NOW. Carrier Washer: Tiffani CardenasPatient Name: ABHAY FRANCES Admission Status: ER Accout number: [id number] Admission Date: 04-12-2020 : 1935 Admission Diagnosis: Attending: SAMM YANG Current LOS: 1 Anticipated DC Date: Planned Disposition: Home with Home Health Primary Insurance: MEDICARE A & B Discharge Planning Comments: Carrier Washer: Tiffani Cardenas DCPIA - Discharge Planning Initial Assessment Updated by [id number]: Tiffani Cardenas on 04/13/20 8:46 am * Is the patient Alert and Oriented? Yes * PCP DOLORES * Pharmacy [facility] [place] * Preadmission Environment Home Alone * Other Equipment CANE, WALKER, O2, NEBS, BSC * Community resources currently utilized None * Additional services required to return to the preadmission environment? No * Can the patient safely return to the preadmission environment? Yes * Has this patient been hospitalized within the prior 30 days at any hospital? Yes Coverage Notice Reviewer: [id number] - Tiffani Cardenas Notice Issued Date-Time: 04/13/2020 8:56 Notice Type: Patient Choice Letter Notice Delivered To: Patient Relationship to Patient: Trolley Collector Name: Delivery Method: HAND - Hand Delivered Donita Days: Prior Verbal Notification: Recipient Understood Notice: Yes Recipient Signature: Yes Med Rec Note Co-signed by Attending: Coverage Notice Comment: [facility] Reviewer: [email or web address] Tasia Eugene Notice Issued Date-Time: 04/15/2020 11:31 Notice Type: IM Discharge Notice Notice Delivered To: Patient Relationship to Patient: Self Trolley Collector Name: Delivery Method: HAND - Hand Delivered Donita Days: Prior Verbal Notification: Recipient Understood Notice: Yes Recipient Signature: Yes Med Rec Note Co-signed by Attending: Coverage Notice Comment: Last DP export: 04/13/20 7:56 a Patient Name: ABHAY FRANCES Page [phone] at 1234 All edits/amendments must be made on the electronic document DICTATION DATE: 04/15/20 1233 SAILING MASTER: RAHEL 04/15/20 1233 RPT#: [id number] DC DATE: STATUS: ADM IN [facility] [address] [place] [address] END OF REPORT
--- NOTE | 2020-04-15 13:39 | NUR ---
TAKEN TO PRIVATE VEHICLE PER W/C, SLING TO R ARM AND DRESSING INTACT
--- NOTE | 2020-04-15 18:50 | MORECARE ---
CASE MANAGEMENT DISCHARGE SUMMARY PATIENT: ABHAY FRANCES UNIT: [id number] ADM DATE: 04/12/20 AGE: 85 : 34 SEX: M ROOM/BED: D.2223 AUTHOR: PAULY CLINTON PHYSICIAN: REFERRING PHYSICIAN: SAMM YANG DO DATE OF SERVICE: 04/15/20 Discharge Plan Patient Name: ABHAY FRANCES Facility: [facility]:[place] : 1935 Planned Disposition: Home with Home Health Anticipated Discharge Date: Discharge Date: 04/15/2020 Expected LOS: Initial Reviewer: [id number] Initial Review Date: 04/13/2020 Generated: 04/15/20 7:49 pm Comments DCP- Discharge Planning Updated by [id number]: Kasandra Eugene on 04/15/20 11:[address] CM spoke with patient upon discharge d/c IMM signed 04/15/20 @ 1131. Patient states that he doesn't have home 02 and doesn't need it. Patient also stated that he doesn't need Home Health Services. CM will call and cancel [facility] . CM will continue to follow and assist as needed with discharge planning / needs. DCP- Discharge Planning Updated by [id number]: Tiffani Cardenas on 04/13/20 7:[address] Patient Name: ABHAY FRANCES Admission Status: ER Accout number: [id number] Admission Date: 04-12-2020 : 1935 Admission Diagnosis: Attending: SAMM YANG Current LOS: 1 Anticipated DC Date: Planned Disposition: Home with Home Health Primary Insurance: MEDICARE A & B Discharge Planning Comments: CM met with patient at bedside after explaining CM role and obtaining verbal consent. CM discussed availability / needs of home health, REHAB and medical equipment. GUERITA HAWK SIGNED FOR [facility] . I WILL FAX REFERRAL NOW. Escapement Matcher: Tiffani CardenasPatient Name: ABHAY FRANCES Admission Status: ER Accout number: [id number] Admission Date: 04-12-2020 : 1935 Admission Diagnosis: Attending: SAMM YANG Current LOS: 1 Anticipated DC Date: Planned Disposition: Home with Home Health Primary Insurance: MEDICARE A & B Discharge Planning Comments: Escapement Matcher: Tiffanirachana Cardenas DCPIA - Discharge Planning Initial Assessment Updated by [email or web address]: Tiffani Cardenas on 04/13/20 8:46 am * Is the patient Alert and Oriented? Yes * PCP DOLORES * Pharmacy [facility] [place] * Preadmission Environment Home Alone * Other Equipment CANE, WALKER, O2, NEBS, BSC * Community resources currently utilized None * Additional services required to return to the preadmission environment? No * Can the patient safely return to the preadmission environment? Yes * Has this patient been hospitalized within the prior 30 days at any hospital? Yes Coverage Notice Reviewer: [id number] - Tiffani Cardenas Notice Issued Date-Time: 04/13/2020 8:56 Notice Type: Patient Choice Letter Notice Delivered To: Patient Relationship to Patient: Router Operator Radial Name: Delivery Method: HAND - Hand Delivered Donita Days: Prior Verbal Notification: Recipient Understood Notice: Yes Recipient Signature: Yes Med Rec Note Co-signed by Attending: Coverage Notice Comment: [facility] Reviewer: [id number] Tasia Eugene Notice Issued Date-Time: 04/15/2020 11:31 Notice Type: IM Discharge Notice Notice Delivered To: Patient Relationship to Patient: Self Router Operator Radial Name: Delivery Method: HAND - Hand Delivered Donita Days: Prior Verbal Notification: Recipient Understood Notice: Yes Recipient Signature: Yes Med Rec Note Co-signed by Attending: Coverage Notice Comment: Last DP export: 04/15/20 11:34 a Patient Name: ABHAY FRANCES Page [id number] at 1850 All edits/amendments must be made on the electronic document DICTATION DATE: 04/15/201848 LEADERSHIP COACH: RAHEL 04/15/201848 RPT#: [id number] DC DATE:04/15/20 STATUS: DIS IN [facility] [address] [place] [address] END OF REPORT
== END 2020-04-15 13:40 | disposition home or self-care (01) | DRG 483 ==
LOC: D.ER 14:46 → D.SDCHOLD 18:06 → D.MS 18:06
PROVIDERS: Family Medicine; ADMIT Family Medicine; ATTEND Family Medicine
PROC: 0RRJ0JZ Replacement of Right Shoulder Joint with Synthetic Substitute, Open Approach (ICD-10-PCS; principal; 2020-04-12)
DX: S42.201A Unspecified fracture of upper end of right humerus, initial encounter for closed fracture (principal); D64.9 Anemia, unspecified; N28.89 Other specified disorders of kidney and ureter; N18.9 Chronic kidney disease, unspecified; W19.XXXA Unspecified fall, initial encounter; J43.9 Emphysema, unspecified; I25.10 Atherosclerotic heart disease of native coronary artery without angina pectoris; I10 Essential (primary) hypertension